=== PATIENT | female | born 1960 | race Two or more races ===

== ENCOUNTER 2020-09-25 11:55 | Emergency (ER) | payer BC ==
[~2020-09-25] VITALS: Ht 162.6 cm; Wt 86.2 kg
[2020-09-25 12:05] VITALS: BP_SYST 176
[2020-09-25 12:33] LABS: BILIRUBIN,URINE NEGATIVE (NEGATIVE); CLARITY/URINE CLEAR (CLEAR); COLOR,URINE YELLOW (YELLOW); GLUCOSE,URINE NEGATIVE (NEGATIVE); KETONES,URINE NEGATIVE (NEGATIVE); LEUKOCYTE ESTERASE ,URINE NEGATIVE (NEGATIVE); NITRITE, URINE NEGATIVE (NEGATIVE); PROTEIN URINE NEGATIVE (NEGATIVE); UROBILINOGEN,URINE 0.2 (0.2-1.0)
[2020-09-25] MEDS: KETOROLAC TROMETHAMINE 30 MG VIAL IVP ONE ×2 (12:33→15:10)
[2020-09-25 12:43] LABS: BASOPHILS % (AUTO) 0.1 % (0.0-2.0); EOSINOPHILS # (AUTO) 0.1 K/uL (0.0-0.4); HEMATOCRIT 37.9 % (36-48); HEMOGLOBIN 12.8 g/dL (12.0-16.0); LYMPHOCYTES # (AUTO) 2.2 K/uL (1.0-5.5); LYMPHOCYTES % (AUTO) 17.7 % (20.5-51.5); MEAN CORPUSCULAR HEMOGLOBIN 35 pg (27-31); MEAN CORPUSCULAR HGB CONC 34 % (32-36); MEAN CORPUSCULAR VOLUME 102 fL (79.0-98.0); MONOCYTES # (AUTO) 0.7 K/uL (0.0-1.0); MONOCYTES % (AUTO) 5.8 % (1.7-9.3); NEUTROPHILS # (AUTO) 9.4 K/uL (1.8-7.7); NEUTROPHILS % (AUTO) 75.4 % (40.0-70.0); PLATELET COUNT (AUTO) 437 K/uL (130-430); RED BLOOD CELL COUNT(AUTO) 3.71 MIL/uL (4.2-6.2); WHITE BLOOD COUNT (AUTO) 12.5 K/uL (4.8-10.8)
[2020-09-25 12:48] LABS: BLOOD, URINE TRACE (NEGATIVE)
[2020-09-25 12:49] LABS: CALCIUM 8.5 mg/dL (8.4-11.0); CREATININE 0.67 mg/dL (0.55-1.30); POTASSIUM 3.5 mmol/L (3.5-5.1)
[2020-09-25 12:55] LABS: TOTAL BILIRUBIN 0.4 mg/dL (0.0-1.0)
[2020-09-25 13:00] LABS: BACTERIA,URINE RARE /HPF (None Seen); WBC,URINE 0-3 /HPF (0-3)
[2020-09-25 13:29] LABS: ERYTHROCYTE SEDIMENTATION RATE 86 MM/HR (0-20)
[2020-09-25] MEDS ORDERED: AMOX-426 PO (14:24)
[2020-09-25] MEDS ORDERED: POLY17PO4 PO (14:24)
[2020-09-25] MEDS ORDERED: TRAM50TA2 PO (14:25)
[2020-09-25] MEDS ORDERED: PIPERACILLIN/TAZO 3.375 GM in NS 50 ML IV ONE (14:30)
[2020-09-25] MEDS ORDERED: PIPERACILLIN/TAZOBACTAM 3.375 GM/VIAL (ZOSYN) IV ONE (14:48)
[2020-09-25] MEDS ORDERED: KETOROLAC TROMETHAMINE 30 MG VIAL ONE (14:50)
[2020-09-25 15:52] VITALS: BP_SYST 152
== END 2020-09-25 15:54 | disposition home or self-care (01) ==
LOC: SED 11:55
DX: R10.30 Lower abdominal pain, unspecified (principal); R19.7 Diarrhea, unspecified
CPT/HCPCS: 36415; 74176; 76376; 80053; 81000; 83605; 85025; 85651; 87040; 96365; 96375; 99284; J1885; J2543